=== PATIENT | female | born 1950 | race Caucasian/White ===

== ENCOUNTER → 2018-04-19 | Outpatient (CLI) | payer OTHER ==
--- NOTE | 2018-04-19 13:21 | DIAGNOSTIC IMAGING REPORT ---
MRI OF THE LEFT KNEE CLINICAL HISTORY: Left knee pain and swelling. COMPARISON STUDY: No priors. TECHNIQUE: MRI of the left knee was performed utilizing proton density, T1, and T2-weighted sequences in the axial, sagittal, coronal planes. IV contrast was not administered for this examination. Note that interpretation is suboptimal without plain film correlate. FINDINGS: Menisci: The medial meniscus appears intact. There is an oblique undersurface tear involving the body of the lateral meniscus. Ligaments: The anterior and posterior cruciate ligaments are intact, noting mucoid degeneration within the anterior cruciate ligament. The medial and lateral collateral ligaments are within normal limits. Extensor mechanism: The extensor mechanism is intact. Hoffa's fat pad is normal in appearance. Articular cartilage and bone: The articular cartilage appears intact within the medial and patellofemoral compartments. There is degenerative thinning along the weightbearing surface of the articular cartilage in the lateral compartment. Foci of greater than 50% fissuring are noted. There is significant marrow edema identified within the lateral tibial plateau. No definite fracture is seen. Marginal osteophytes are observed. Joint effusion: There is a moderate to large joint effusion. Soft tissues: The musculature surrounding the knee joint is normal in bulk and signal intensity. Prepatellar soft tissue edema is noted. IMPRESSION: 1. Moderate to large joint effusion. 2. There is an oblique undersurface tear involving the body of the lateral meniscus. 3. The medial meniscus, the cruciate ligaments, and the collateral ligaments appear maintained. 4. There is arthritic change in the lateral compartment with foci of greater than 50% fissuring of the articular cartilage. 5. There is significant marrow edema identified within the medial tibial plateau, likely on a degenerative basis. Developing stress reaction is not excluded. Clinical correlation will be required. Electronically signed by: Bobby Michael M.D. 04/19/2018 1:19 PM Dictated Date/Time: 04/19/2018 1:10 PM
== END | disposition home or self-care (01) ==
LOC: C.MRI 11:53
PROVIDERS: ATTEND Family Medicine
DX: S83.282A Other tear of lateral meniscus, current injury, left knee, initial encounter (principal); X58.XXXA Exposure to other specified factors, initial encounter